=== PATIENT | male | born 1995 ===

== ENCOUNTER 2018-07-18 16:52 | Emergency (ER) | payer MEDICAID, OTHER ==
[2018-07-18] MEDS ORDERED: Sodium Chloride 0.9% 1,000 ML IV STA (17:20)
[2018-07-18 17:31] LABS: BASO % 0.2 % (0.0-2.0); EOS % 0.4 % (0.0-4.0); HEMOGLOBIN 15.4 g/dL (12.0-18.0); LYMPH # 1.6 K/uL (1.0-4.3); LYMPH % 18.8 % (20.0-40.0); MEAN CORPUSCULAR HEMOGLOBIN 31.6 pg (27.0-31.0); MEAN PLATELET VOLUME 7.5 fl (7.2-11.7); MONO # 0.4 K/uL (0.0-0.8); MONO % 4.7 % (0.0-10.0); NEUT # 6.4 K/uL (1.8-7.0); NEUT % 75.9 % (50.0-75.0); NRBC % 0.1 % (0.0-0.0); RBC 4.86 Mil/uL (4.40-5.90); RED CELL DISTRIBUTION WIDTH 13.5 % (11.5-14.5); WHITE BLOOD COUNT 8.4 K/uL (4.8-10.8)
--- NOTE | 2018-07-18 17:35 | ED PDOC ---
Syncope/Near Syncope/Dizziness Time Seen by Provider: 07/18/18 17:14 Chief Complaint (Nursing): Syncope Chief Complaint (Provider): Syncope, flu like symptoms History Per: Patient History/Exam Limitations: no limitations Number Of Syncopal Episodes: 1 Additional Complaint(s): 22yo male, otherwise well, recently completed a chiropractic treatment and states he got dizzy and had a witnessed syncopal episode in the office. Patient additionally reports over the past 2-3 days, he has had flu like symptom including sore throat, malaise and mild cough. He otherwise denies any dyspnea, vomiting, diarrhea, chest pain, extremity swelling or exercise intolerance. He also denies any head injury, or recurrent headaches. Patient states he feels "back to myself" at this time. PMD: Dr. John Myers Past Medical History Reviewed: Historical Data, Nursing Documentation, Vital Signs Vital Signs: Last Vital Signs Temp 98.4 F 07/18/18 17:00 Pulse 60 07/18/18 17:00 Resp 16 07/18/18 17:00 BP 118/59 L 07/18/18 17:00 Pulse Ox 99 07/18/18 17:00 - Medical History PMH: No Chronic Diseases - Surgical History Surgical History: No Surg Hx - Family History Family History: States: No Known Family Hx - Social History Alcohol: Social Drugs: Other (no drug usage in the past month) - Home Medications Home Medications: Ambulatory Orders Medication Instructions Recorded RX: Albuterol HFA [Ventolin HFA 90 2 puff IH [id number] PRN #60 puff 10/19/ mcg/actuation (8 g)] - Allergies Allergies/Adverse Reactions: Allergies Allergy/AdvReac Type Severity Reaction Status Date / Time No Known Allergies Allergy Verified 07/18/18 16:59 Review of Systems ROS Statement: Except As Marked, All Systems Reviewed And Found Negative Constitutional: Positive for: Malaise. Negative for: Fever, Chills ENT: Positive for: Throat Pain Cardiovascular: Negative for: Chest Pain, Edema Respiratory: Positive for: Cough. Negative for: Shortness of Breath Gastrointestinal: Negative for: Vomiting, Diarrhea Neurological: Negative for: Weakness, Numbness, Headache Physical Exam - Reviewed Nursing Documentation Reviewed: Yes Vital Signs Reviewed: Yes - Physical Exam Appears: Positive for: Non-toxic Head Exam: Positive for: ATRAUMATIC, NORMAL INSPECTION, NORMOCEPHALIC Skin: Positive for: Normal Color Eye Exam: Positive for: Normal appearance, EOMI, PERRL ENT: Negative for: Pharyngeal Erythema Neck: Positive for: Normal, Supple Cardiovascular/Chest: Positive for: Regular Rate, Rhythm Respiratory: Positive for: Normal Breath Sounds. Negative for: Wheezing Gastrointestinal/Abdominal: Positive for: Normal Exam, Soft Back: Positive for: Normal Inspection Extremity: Positive for: Normal ROM. Negative for: Pedal Edema Neurologic/Psych: Positive for: Alert, Oriented. Negative for: Motor/Sensory Deficits - Laboratory Results Result Diagrams: 07/18/18 17:27 07/18/18 18:25 - ECG ECG: Positive for: Interpreted By Me ECG Rhythm: Positive for: Sinus Bradycardia, Nonspecific Changes Interpretation Of Abn EKG: ICRBBB Rate: 58 O2 Sat by Pulse Oximetry: 99 (RA) Pulse Ox Interpretation: Normal Medical Decision Making Medical Decision Making: Will workup for syncope, flu like illness Patient is out of range for Tamiflu treatment, will rule out sequela of influenza Plan: -- Labs -- EKG -- Urinalysis -- IV Fluids ----- Scribe Attestation: Documented by Addis Kenney acting as a scribe for Ciaran Ortez DO. Provider Attestation: All medical record entries made by the Scribe were at my direction and pe rsonally dictated by me. I have reviewed the chart and agree that the record accurately reflects my personal performance of the history, physical exam, medical decision making, and the department course for this patient. I have also personally directed, reviewed, and agree with the discharge instructions and disposition. Disposition - Clinical Impression Clinical Impression: Syncope - Patient ED Disposition Is Patient to be Admitted: Transfer of Care - Disposition Referrals: Jerrell Jane MD [Staff Provider] - Disposition Time: 19:00 Condition: STABLE Instructions: Vasovagal Response (DC) Forms: [employer] (Bengali)
[2018-07-18 18:03] LABS: ALB/GLOB RATIO 1.1 (1.0-2.1); ALBUMIN 5.1 g/dL (3.5-5.0); ALT/SGPT 17 U/L (21-72); AST/SGOT 71 U/L (17-59); B-TYPE NATRIURETIC PEPTIDE 27.9 pg/ml (0-450); BLOOD UREA NITROGEN 23 mg/dl (9-20); CALCIUM 9.4 mg/dL (8.4-10.2); GFR NON-AFRICAN AMERICAN > 60
[2018-07-18 18:45] LABS: ALB/GLOB RATIO 1.1 (1.0-2.1); ALBUMIN 4.5 g/dL (3.5-5.0); ALT/SGPT 36 U/L (21-72); AST/SGOT 31 U/L (17-59); BLOOD UREA NITROGEN 22 mg/dl (9-20); CALCIUM 9.6 mg/dL (8.4-10.2); GFR NON-AFRICAN AMERICAN > 60
--- NOTE | 2018-07-18 19:19 | ED PDOC ---
- Laboratory Results Result Diagrams: 07/18/18 17:27 07/18/18 18:25 Lab Results: Troponin I 0.0130 ng/mL (0.00-0.120) 07/18/18 17: NT-Pro-B Natriuret Pep 27.9 pg/ml (0-450) 07/18/18 17: Total Bilirubin 1.2 mg/dl (0.2-1.3) 07/18/18 18:25 AST 31 U/L (17-59) 07/18/18 18:25 ALT 36 U/L (21-72) 07/18/18 18:25 Alkaline Phosphatase 61 U/L (38-126) 07/18/18 18:25 Total Protein 8.5 G/DL (6.3-8.2) H 07/18/18 18:25 Albumin 4.5 g/dL (3.5-5.0) 07/18/18 18: Globulin 3.9 gm/dL (2.2-3.9) 07/18/18 18: Albumin/Globulin Ratio 1.1 (1.0-2.1) 07/18/18 18:25 - ECG O2 Sat by Pulse Oximetry: 99 (RA) Medical Decision Making Medical Decision Makin:00 Patient endorsed to provider by Dr. Ortez pending labs. 19:35 Upon reevaluation, patient reports feeling much better and states his lateral neck was manipulated during chiropractic session possibly leading to vasovagal response. Gave patient copy of EKG and advised to follow up with naturopathic oncology provider. Patient is very well appearing, vitals are normal and medically stable for discharge home. Scribe Attestation: Documented by Dano Celeste, acting as a scribe for Sy Xavier MD Provider Scribe Attestation: All medical record entries made by the Scribe were at my direction and personally dictated by me. I have reviewed the chart and agree that the record accurately reflects my personal performance of the history, physical exam, medical decision making, and the department course for this patient. I have also personally directed, reviewed, and agree with the discharge instructions and disposition. Disposition - Clinical Impression Clinical Impression: Syncope - POA Present On Arrival: None - Disposition Referrals: Jerrell Jane MD [Staff Provider] - Disposition: Routine/Home Disposition Time: 19:40 Condition: STABLE Instructions: Vasovagal Response (DC) Forms: [employer] (Hungarian)
[2018-07-18 19:35] LABS: URINE BACTERIA RARE (<OCC); URINE BILIRUBIN NEGATIVE (NEGATIVE); URINE BLOOD NEGATIVE (NEGATIVE); URINE CLARITY CLOUDY (Clear); URINE COLOR YELLOW (YELLOW); URINE GLUCOSE (UA) NEG (NEGATIVE); URINE LEUKOCYTE ESTERASE NEG Leu/uL (Negative); URINE PROTEIN 30 mg/dL (NEGATIVE); URINE UROBILINOGEN 0.2-1.0 mg/dL (0.2-1.0)
[2018-07-18 20:04] VITALS: BP 135/84; RESP 18; TEMP 98.2
[2018-07-18 22:07] VITALS: O2SAT 99
--- NOTE | 2018-07-19 12:20 | CARD ---
APPROVED REPORT Date of service: 07/18/2018 EKG Measurement Heart [id number] CT [id number] <Conclusion> Sinus bradycardia Left axis deviation Incomplete right bundle branch block Abnormal ECG
[2018-07-20 16:05] VITALS: PULSE 58
== END 2018-07-18 19:05 | disposition home or self-care (01) ==
LOC: H.ER 16:52
DX: R55 Syncope and collapse (principal)
CPT/HCPCS: 80053; 81003; 82550; 83880; 84484; 85025; 93005; 96360; 99285; J7030